=== PATIENT | male | born 2000 | race Caucasian/White ===

== ENCOUNTER 2019-06-11 10:43 | Emergency (ER) | payer OTHER ==
[2019-06-11 11:06] VITALS: BP 132/75
--- NOTE | 2019-06-11 12:38 | ED Physician Documentation ---
PD HPI NVD - Stated complaint Stated Complaint: CHEMICAL EXPOSURE - Chief complaint Chief Complaint: General - History obtained from History obtained from: Patient - History of Present Illness Timing - onset: Enter time (0100), Last night Timing - duration: Hours Timing - details: Abrupt onset, Now resolved Associated symptoms: Other (diarrhea) Contributing factors: Bad food (ate at [facility]), Other (splashed some solvent at work in mouth (about a drop in the mouth) yesterday 3pm.) Improved by: BM Similar symptoms before: Has not had sx before Recently seen: Not recently seen - Additonal information Additional information: 18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 He states the diarrhea is now improved he is not having abdominal cramping and he is concerned because she did get some salt in his mouth yesterday he states that it was only about a drop. Review of Systems Constitutional: denies: Fever Eyes: denies: Decreased vision Ears: denies: Ear pain Nose: denies: Congestion Throat: denies: Sore throat Cardiac: denies: Chest pain / pressure, Palpitations Respiratory: denies: Dyspnea, Cough GI: reports: Abdominal Pain, Diarrhea. denies: Nausea, Vomiting : denies: Dysuria, Frequency Skin: denies: Rash Musculoskeletal: denies: Neck pain, Back pain, Extremity pain, Extremity swelling Neurologic: denies: Generalized weakness, Focal weakness, Numbness PD PAST MEDICAL HISTORY - Present Medications Home Medications: Ambulatory Orders Medication Instructions Recorded Confirmed No Known Home Medications 06/11/19 06/11/19 - Allergies Allergies/Adverse Reactions: Allergies Allergy/AdvReac Type Severity Reaction Status Date / Time No Known Drug Allergies Allergy Verified 06/11/19 11:06 - Social History Does the pt smoke?: No Smoking Status: Never smoker PD ED PE NORMAL - Vitals Vital signs reviewed: Yes (normal ) - General General: Alert and oriented X 3, No acute distress, Well developed/nourished - HEENT HEENT: Atraumatic, PERRL, EOMI - Neck Neck: Supple, no meningeal sign, No bony TTP - Cardiac Cardiac: RRR, No murmur - Respiratory Respiratory: No respiratory distress, Clear bilaterally - Abdomen Abdomen: Normal bowel sounds, Soft, Non tender, Non distended - Back Back: No CVA TTP, No spinal TTP - Derm Derm: Normal color, Warm and dry, No rash - Extremities Extremities: No deformity, No edema - Neuro Neuro: Alert and oriented X 3, leather dresser 2-12 intact, No motor deficit, No sensory deficit, Normal speech Eye Opening: Spontaneous Motor: Obeys Commands Verbal: Oriented GCS Score: 15 - Psych Psych: Normal mood, Normal affect Results - Vitals Vitals: Vital Signs - 24 hr 06/11/19 11:02 Temperature 36.6 C Heart Rate 72 Respiratory 18 Rate Blood Pressure 132/75 H O2 Saturation 99 Oxygen O2 Source Room air PD MEDICAL DECISION MAKING - ED course Complexity details: considered differential, d/w patient ED course: 18 y/o male with episode of diarrhea after eating at [employer] [facility] has resolved his symptoms. He has some industrial exposure the day prior and I do not believe the diarhhea and the exposure are related. Departure - Departure Disposition: 01 Home, Self Care Clinical Impression: Gastroenteritis Condition: Stable Instructions: ED Food Poison Or Gastroenteritis Follow-Up: LEIF Panda [Provider Group] Discharge Date/Time: 06/11/19 12:42
== END 2019-06-11 12:42 | disposition home or self-care (01) ==
LOC: ED 10:43
DX: K52.9 Noninfective gastroenteritis and colitis, unspecified (principal)
CPT/HCPCS: 99282